=== PATIENT | female | born 1970 | race Caucasian/White ===

== ENCOUNTER → 2017-11-15 | Outpatient (CLI) | payer OTHER ==
[~2017-11-15] MED LIST: ACYC800 PO; FAMO20 PO; OXYACE5T PO; PROM25 PO
[2017-11-17 12:53] LABS: HPV Genotype 16 Not Detected (NOTDET); HPV Genotype 18 Not Detected (NOTDET)
[2017-11-28 10:31] LABS: HPV High Risk Other Not Detected (NOTDET)
== END | disposition home or self-care (01) ==
LOC: LAB 11:56
PROVIDERS: Obstetrics & Gynecology
DX: Z01.419 Encounter for gynecological examination (general) (routine) without abnormal findings (principal)
CPT/HCPCS: 87624; G0123

== ENCOUNTER 2018-12-18 14:41 | Emergency (ER) | payer OTHER ==
[~2018-12-18] VITALS: Ht 157.5 cm; Wt 90.3 kg
[2018-12-18] MEDS ORDERED: Voltaren100 GM TOP (17:05)
[2018-12-18] MEDS ORDERED: Ultram50 MG PO (17:05)
== END 2018-12-18 17:20 | disposition home or self-care (01) ==
LOC: ER 14:41
DX: M25.561 Pain in right knee (principal); F17.200 Nicotine dependence, unspecified, uncomplicated; Z88.1 Allergy status to other antibiotic agents; Z88.8 Allergy status to other drugs, medicaments and biological substances; Z88.5 Allergy status to narcotic agent; Z88.6 Allergy status to analgesic agent; Z88.0 Allergy status to penicillin
CPT/HCPCS: 29505; 73562-RT; 96372-59; 99283-25; J1885

== ENCOUNTER → 2020-05-02 | Outpatient (CLI) | payer OTHER ==
[~2020-05-02] MED LIST changes: +Ultram50 MG PO; +Voltaren100 GM TOP
[2020-05-02 18:53] LABS: Alanine Aminotransfer (ALT/SGP 35 U/L (12-78); Albumin, Blood 3.3 g/dL (3.4-5.0); Albumin/Globulin Ratio 0.8 (0.8-1.8); Alk Phos 103 U/L (50-136); Anion Gap 4 mmol/L (6-16); Aspartate Aminotrans (AST/SGOT 29 U/L (12-37); Bilirubin, Total 0.3 mg/dL (0.1-1.0); Blood Urea Nitrogen 6 mg/dL (8-24); Bun/Creatinine Ratio 10.9 (12.0-20.0); CO2, Blood 29 mmol/L (21-32); Calcium, Blood 8.4 mg/dL (8.5-10.1); Chloride, Blood 106 mmol/L (98-108); Creatinine, Blood 0.55 mg/dL (0.40-1.00); Globulin, Blood 4.2 g/dL (2.2-4.0); Glomerular Filtration Rate >60 (60-); Glucose, Blood 102 mg/dL (70-99); Potassium, Blood 3.9 mmol/L (3.5-5.5); Sodium, Blood 139 mmol/L (136-145); Total Protein, Blood 7.5 g/dL (6.4-8.2)
== END | disposition home or self-care (01) ==
LOC: LAB SHORT 17:52 → LAB 17:52
PROVIDERS: Nurse Practitioner Family
DX: F41.1 Generalized anxiety disorder (principal)
CPT/HCPCS: 80053; 82306; 84443

== ENCOUNTER 2024-04-14 19:40 | Emergency (ER) | payer OTHER ==
[~2024-04-14] VITALS: Ht 160 cm; Wt 90.7 kg
[2024-04-14 20:02] VITALS: BP 145/97
== END 2024-04-14 21:17 | disposition home or self-care (01) ==
LOC: ER 19:40
DX: S91.312A Laceration without foreign body, left foot, initial encounter (principal); W22.8XXA Striking against or struck by other objects, initial encounter; Z88.1 Allergy status to other antibiotic agents; Z88.8 Allergy status to other drugs, medicaments and biological substances; Z88.6 Allergy status to analgesic agent; Z88.5 Allergy status to narcotic agent; Z79.899 Other long term (current) drug therapy
CPT/HCPCS: 73620

== ENCOUNTER 2025-03-23 15:17 | Emergency (ER) | payer OTHER ==
[~2025-03-23] VITALS: Ht 157.5 cm; Wt 100.7 kg
[2025-03-23 15:27] VITALS: BP 115/101
[2025-03-23] MEDS ORDERED: Dexamethasone Sod Phos 10 MG/ML 1ML VIAL PO ONE (15:35)
== END 2025-03-23 18:24 | disposition home or self-care (01) ==
LOC: ER 15:17
DX: T63.441A Toxic effect of venom of bees, accidental (unintentional), initial encounter (principal); Z88.1 Allergy status to other antibiotic agents; Z88.6 Allergy status to analgesic agent; Z88.0 Allergy status to penicillin; Z88.5 Allergy status to narcotic agent; Z88.8 Allergy status to other drugs, medicaments and biological substances
CPT/HCPCS: 99282; A9270; J1100